=== PATIENT | female | born 1970 | race Caucasian/White ===

== ENCOUNTER → 2016-09-28 | Outpatient (CLI) | payer BC | LOC: RAD 14:53 | PROVIDERS: ATTEND Specialist | DX: Z30.2 Encounter for sterilization (principal) | CPT/HCPCS: 74740 ==

== ENCOUNTER → 2018-05-20 | Outpatient (CLI) | payer SELFPAY ==
--- NOTE | 2018-05-20 13:53 | RADIOLOGY REPORT (SQ) ---
EXAM DESCRIPTION: CHEST 2 VIEWS COMPLETED DATE/TIME: 05/20/2018 1:39 pm REASON FOR STUDY: COUGH (R05) COMPARISON: None. EXAM PARAMETERS: NUMBER OF VIEWS: two views TECHNIQUE: Digital Frontal and Lateral radiographic views of the chest acquired. RADIATION DOSE: NA LIMITATIONS: none FINDINGS: LUNGS AND PLEURA: No opacities, masses or pneumothorax. No pleural effusion. MEDIASTINUM AND HILAR STRUCTURES: No masses or contour abnormalities. HEART AND VASCULAR STRUCTURES: Heart normal size. No evidence for failure. BONES: No acute findings. HARDWARE: None in the chest. OTHER: No other significant finding. IMPRESSION: NO ACUTE RADIOGRAPHIC FINDING IN THE CHEST. TECHNICAL DOCUMENTATION: JOB ID: [id number]- All Rights Reserved Reading location - IP/workstation name: [email or web address]
== END ==
LOC: RAD 13:01
PROVIDERS: ATTEND Internal Medicine Cardiovascular Disease
DX: R05 Cough (principal)
CPT/HCPCS: 71046

== ENCOUNTER 2018-07-23 21:34 | Emergency (ER) | payer SELFPAY ==
[2018-07-24] MEDS ORDERED: TETANUS/DIPHTHERIA TOX-ADULT 0.5 ML SYR (>=7YO) IM ONE (01:47)
--- NOTE | 2018-07-24 01:55 | ER Document Report ---
ED Animal Bite - General Chief Complaint: Dog Bite Stated Complaint: DOG BITE Time Seen by Provider: 07/24/18 01:46 Notes: 47-year-old female presents to the emergency department after her dog bit her when she tried to pull it off of another dog. She states her dog was clamped onto her daughter's dog and she intervened and the dog did not realize it and then bit her in the left lower extremity. The dog immediately released but there was bleeding. The dog's vaccines are completely up-to-date including rabies. Patient endorses pain at the site bleeding. Patient denies any numbness or tingling or any nerve involvement. Patient states there are 3 areas where the skin is broken. Patient's last tetanus was 7 years ago. TRAVEL OUTSIDE OF THE [place] IN LAST 30 DAYS: No - Related Data Allergies/Adverse Reactions: hydrocodone Adverse Reaction (Mild, Verified 07/24/18 00:12) Pruritis amoxicillin [From Augmentin] Adverse Reaction (Verified 07/24/18 00:12) clavulanic acid [From Augmentin] Adverse Reaction (Verified 07/24/18 00:12) Past Medical History - Social History Smoking Status: Never Smoker Chew tobacco use (# tins/day): No Frequency of alcohol use: Social Drug Abuse: None Family History: Reviewed & Not Pertinent Patient has suicidal ideation: No Patient has homicidal ideation: No - Past Medical History Cardiac Medical History: Reports: Hx Hypertension Pulmonary Medical History: Reports: Hx Asthma Renal/ Medical History: Denies: Hx Peritoneal Dialysis GI Medical History: Reports: Hx Gastroesophageal Reflux Disease Past Surgical History: Reports: Hx Section, Hx Nose Surgery, Hx O rthopedic Surgery - x3 Review of Systems - Review of Systems Constitutional: No symptoms reported EENT: No symptoms reported Cardiovascular: No symptoms reported Respiratory: No symptoms reported Gastrointestinal: No symptoms reported Genitourinary: No symptoms reported Female Genitourinary: No symptoms reported Musculoskeletal: See HPI Skin: See HPI Hematologic/Lymphatic: No symptoms reported Neurological/Psychological: No symptoms reported Physical Exam - Vital signs Vitals: Temp Pulse Resp BP Pulse Ox 98.7 F 90 20 135/92 H 97 07/23/18 21:42 07/23/18 21:42 07/23/18 21:42 07/23/18 21:42 07/23/18 21:42 - Notes Notes: Reviewed vital signs and nursing note as charted by RN. CONSTITUTIONAL: Well-appearing, well-nourished, acting appropriately for age HEAD: Normocephalic, atraumatic, no swelling EYES: PERRL, Conjunctivae clear, no drainage, EOMI, no scleral icterus ENT: External ears without lesions, airway patent, mucous membranes pink and mois EXT: Normal ROM in all joints, tender to palpation distal left lower extremity, no effusions, no edema SKIN: Normal color for age and race, warm, dry, good turgor, 2 cm linear laceration medial distal left lower extremity, small abrasion anterior distal left lower extremity with an additional wound anteromedial distal left lower extremity. Very very mild oozing at the site overall hemorrhage control has been established. NEURO: No facial asymmetry, moves all extremities equally, motor and sensory function intact - General General appearance: Appears well, Alert Course - Re-evaluation Re-evalutation: 07/24/18 02:06 Pleasant 47-year-old woman presents after her dog bit her when trying to break up a fight with another dog. She states that the dog immediately clamped on and then released. Tetanus is up-to-date but 7 years old. Plan is to give Td vaccination, Augmentin 875 mg/125 twice daily for 5 days, Zofran, and some narcotic pain control for a couple of days. There is no evidence of infection, distal neurovascular sensation is intact. Patient has range of motion. Patient is able to bear weight and walk on it. No plans to close the wounds as they are dog bites and dirty wounds. Patient will follow up with her primary care provider as needed. - Vital Signs Vital signs: Temp Pulse Resp BP Pulse Ox 98.7 F 90 20 135/92 H 97 07/23/18 21:42 07/23/18 21:42 07/23/18 21:42 07/23/18 21:42 07/23/18 21:42 Discharge - Discharge Clinical Impression: Dog bite Qualifiers: Encounter type: initial encounter Qualified Code(s): W54.0XXA - Bitten by dog, initial encounter Condition: Good Instructions: Animal Bites ([facility]) Additional Instructions: You were seen in the emergency department this evening for a dog bite. You were also given the Td vaccination as your last tetanus was 7 years ago. Because t hese are considered dirty bites we would not close them with sutures if it were necessary. There is a laceration on the medial aspect of your left leg that could possibly have used sutures but it should heal without issue. Also, your prescribed Augmentin that you should take 2 times per day for 3-5 days. There is a prescription for Zofran to accompany it to help stave off nausea and vomiting. Also, you are receiving a prescription for Percocet that he can take as needed for the next couple of days for pain. Please look out for the warning signs of infection like erythema, warmth, fever or other signs of infection. Please return to the emergency department if you have the signs or if you have any other concerns. Prescriptions: Amox Tr/Potassium Clavulanate [Augmentin 875-125 mg Tablet] 1 tab PO BID #10 tablet Ondansetron [Zofran Odt 4 mg Tablet] 1 - 2 tab PO Q4H PRN #15 tab.rapdis PRN Reason: For Nausea/Vomiting Oxycodone HCl/Acetaminophen [Percocet 5-325 mg Tablet] 1 tab PO Q4H PRN #8 tablet PRN Reason: Referrals: ANGELINA POTTS MD [Primary Care Provider] - Follow up as needed
[2018-07-24 02:50] VITALS: BP 136/85
== END 2018-07-24 02:52 | disposition home or self-care (01) ==
LOC: ER 21:34
DX: S81.852A Open bite, left lower leg, initial encounter (principal); W54.0XXA Bitten by dog, initial encounter; I10 Essential (primary) hypertension; J45.909 Unspecified asthma, uncomplicated
CPT/HCPCS: 90471; 90714; 99283

== ENCOUNTER → 2020-07-18 | Outpatient (CLI) | payer SELFPAY ==
[2020-07-18 14:13] VITALS: BP 143/88
--- NOTE | 2020-07-18 14:13 | ER RDC ASSESSMENT REPORT ---
Intake - In the Last 14 days Have you traveled outside [place]?: No Have you been in close contact with someone CONFIRMED: No Worked in Healthcare?: No - Symptoms Subjective Fever([place] feverish): No Chills: No Muscule Aches: No Runny Nose: Yes Sore Throat: No Cough (New or worsening chronic cough): No Shortness of breath: No Nausea or Vomiting: No Headache: Yes Abdominal Pain: No Diarrhea(3 or more loose stools in last 24 hours): No - Do you have any of the following Chronic lung disease: Asthma or emphysema or COPD: Yes Chronic Lung Disease Comment: History of asthma Cystic Fibrosis: No Diabetes: No High Blood Pressure: Yes Cardiovascular Disease: Yes Chronic Kidney Disease: No Chronic Liver Disease: No Chronic blood disorder like Sickle Cell Disease: No Weak immune system due to disease or medication: No Neurologic condition that limits movement: No Developmental delay - Moderate to Severe: No Recent (within past 2 weeks) or current : No Morbid Obesity (>100 pounds over ideal weight): No Obesity Comment: Height 5 feet 9 inches weight 219 pounds - Objective Temperature: 98.0 F Pulse Rate: 71 Respiratory Rate: 18 Blood Pressure: 143/88 O2 Sat by Pulse Oximetry: 97 Objective: Given above, testing performed: If Testing Performed: Test Specimen Type Sent to General - General Information source: Patient Notes: In here at [facility] for Covid testing 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 Patient reports having nasal congestion and headache. Symptoms since 07/11 for about a week. Patient denies sore throat and only wants Covid testing done. - Related Data Allergies/Adverse Reactions: hydrocodone Adverse Reaction (Mild, Verified 07/24/18 00:12) Pruritis amoxicillin [From Augmentin] Adverse Reaction (Verified 07/24/18 00:12) clavulanic acid [From Augmentin] Adverse Reaction (Verified 07/24/18 00:12) Past Medical History - General Information source: Patient - Social History Smoking Status: Never Smoker Family History: Reviewed & Not Pertinent - Past Medical History Cardiac Medical History: Reports: Hx Hypertension Pulmonary Medical History: Reports: Hx Asthma Renal/ Medical History: Denies: Hx Peritoneal Dialysis GI Medical History: Reports: Hx Gastroesophageal Reflux Disease Past Surgical History: Reports: Hx Section, Hx Nose Surgery, Hx Orthopedic Surgery - x3 Physical Exam - General General appearance: Appears well, Alert In distress: None Notes: PHYSICAL EXAMINATION: GENERAL: Well-appearing and in no acute distress. HEAD: Atraumatic, normocephalic. EYES: sclera anicteric, conjunctiva are normal. ENT: nares patent. Moist mucous membranes. NECK: Normal range of motion, supple without lymphadenopathy LUNGS: CTAB and equal. No wheezes rales or rhonchi. Respirations even and unlabored lung sounds clear. HEART: Regular rate and rhythm without murmurs ABDOMEN: Soft, nontender, normal bowel sounds, no guarding. EXTREMITIES: Normal range of motion, no pitting edema. No cyanosis. NEUROLOGICAL: Cranial nerves grossly intact. Normal speech. Normal gait. PSYCH: Normal mood, normal affect. SKIN: Warm, Dry, normal turgor, no rashes or lesions noted Diagnostic Results Laboratory Results: Pending Covid testing results. Patient provided instructions regarding Covid to include: As a person under investigation for Covid 19, the [place] department of Health and Human Services, division of public health advises you to adhere to the following guidance until your test results are reported to you. If your test result is positive, you will receive additional information from your provider and your local health department at that time. Remain at home until you are cleared by the health provider or public health authorities. Keep a log of visitors to your home, notify any visitors to your home of your isolation status. If you plan to move to a new address or leave the [facility], notify the local health department in your County. Call your doctor or seek care if you have an urgent medical need. Before seeking medical care, call ahead to get instructions from the provider before arriving at the medical office clinic or hospital. Notify them that you are b eing tested for the virus that causes Covid 19 so that arrangements can be made, as necessary, to prevent transmission to others in the healthcare setting. Next, notify the local health department in your county. If a medical emergency arises and you need to call 911, inform the first responders that you are being tested for the virus that causes Covid 19. Next, notify the local health department in your county. Patient Education/Counseling Counseling/Education: Patient presents with upper respiratory symptoms worrisome for possible Covid 19. Patient does not have emergency worring symptoms such as difficulty breathing, shortness of breath, chest pain, pressure, confusion or cyanosis. Patient appears suitable for discharge. Patient instructed to follow-up with her PCP at [facility]. To ED for persistent or worsening symptoms. Patient's vital signs are stable and patient is nontoxic in appearance. Good return precautions have been discussed with patient, patient verbalized understanding and is agreeable with discharge plan of care at this time. RDC Discharge - Discharge Clinical Impression: Encounter for screening laboratory testing for COVID-19 virus Upper respiratory infection Qualifiers: URI type: unspecified URI Qualified Code(s): J06.9 - Acute upper respiratory infection, unspecified Condition: Stable Disposition: Home; Selfcare
== END ==
LOC: RDC 14:02
PROVIDERS: ATTEND Nurse Practitioner Family
DX: J06.9 Acute upper respiratory infection, unspecified (principal); Z20.828 Contact with and (suspected) exposure to other viral communicable diseases; R09.81 Nasal congestion; R51.9 Headache, unspecified; I10 Essential (primary) hypertension; K21.9 Gastro-esophageal reflux disease without esophagitis; Z87.09 Personal history of other diseases of the respiratory system; Z88.1 Allergy status to other antibiotic agents; Z88.6 Allergy status to analgesic agent
CPT/HCPCS: 87635; 99201; 99211; C9803